=== PATIENT | female | born 1930 | race Caucasian/White ===

== ENCOUNTER 2018-10-17 20:25 | Inpatient (IN) | payer MEDICARE, OTHER ==
[~2018-10-17] VITALS: Ht 162.6 cm; Wt 113.4 kg
[~2018-10-17 20:25] MED LIST: AMIODARONE HCL200 MG PO; ATIVAN0.5 MG PO; LANTUS100 UNITS/ SC; LASIX40 MG PO; LEVOTHYROXINE75 MCG PO; MIRALAX17 GM PO; NOVOLOG MI100 UNITS/ SC; SPIRONOLACTONE25 MG PO
[2018-10-17] MEDS ORDERED: ACETAMINOPHEN 325 MG TAB PO ONE (20:45)
[2018-10-17] MEDS ORDERED: ACETAMINOPHEN 325 MG TAB ONE (20:55)
[2018-10-17] MEDS ORDERED: CEFTRIAXONE SOD 1 GM/NS 50 ML 50 ML IV ONE (21:00)
[2018-10-17 21:14] LABS: BASOPHILS # (AUTO) 0.1 (0.0-0.1); BASOPHILS % 0.2 % (0.0-1.0); EOSINOPHILS # (AUTO) 0.1 (0.0-0.4); EOSINOPHILS % 0.4 % (0.0-6.0); HEMATOCRIT 46.3 % (34.2-44.1); HEMOGLOBIN 15.3 g/dL (12.0-16.0); LYMPHOCYTES # (AUTO) 0.7 (1.0-3.2); LYMPHOCYTES % 3.2 % (18.0-39.1); MEAN CORPUSCULAR HEMOGLOBIN 32.2 pg (28-32); MEAN CORPUSCULAR VOLUME 97.5 fL (81-99); MONOCYTES # (AUTO) 0.7 (0.2-0.8); NEUTROPHILS # (AUTO) 20.9 (2.1-6.9); NEUTROPHILS % 92.5 % (38.7-80.0); PLATELET COUNT 144 x10e3/uL (140-360); RED BLOOD COUNT 4.75 x10e6/uL (3.6-5.1); RED CELL DISTRIBUTION WIDTH 14.3 % (11.7-14.4)
[2018-10-17 21:24] LABS: INR 2.21; PROTHROMBIN TIME 25.2 seconds (11.9-14.5)
[2018-10-17 21:25] LABS: PARTIAL THROMBOPLASTIN TIME 49.8 seconds (23.8-35.5)
--- NOTE | 2018-10-17 21:29 | NUR ---
JESICA LAYNE NOTIFIED OF CRITICAL LAB VALUE; LACTIC ACID 22.7.
[2018-10-17 21:31] LABS: ALBUMIN 3.5 g/dL (3.5-5.0); ALBUMIN/GLOBULIN RATIO 0.8 (0.8-2.0); ANION GAP 17.7 mmol/L (8-16); CALCIUM 10.5 mg/dL (8.4-10.2); CREATININE, SERUM 1.8 mg/dL (0.57-1.11); POTASSIUM 3.7 mmol/L (3.5-5.1)
[2018-10-17 21:38] LABS: CREATINE KINASE MB 1.7 ng/mL (0-5.0)
--- NOTE | 2018-10-17 21:38 | Diagnostic Imaging Report ---
EXAMINATION: CHEST SINGLE (PORTABLE) COMPARISON: None INDICATION: Fever ^fever ^[id number] ^2054 ^Y DISCUSSION: Frontal view of the chest obtained at 7 hours. HEART AND MEDIASTINUM: The cardiomediastinal silhouette is enlarged. There are calcifications in the aortic arch. LINES: None. LUNGS: Lung volumes are low. There is a patchy airspace opacity in the base of the right lung. Pulmonary vascular markings are prominent. PLEURA: No large effusions. No pneumothorax BONES AND SOFT TISSUES: Bilateral humeral prostheses are in anatomic alignment. No focal osseous lesions. The soft tissues are normal. IMPRESSION: Cardiomegaly and pulmonary vascular congestion. Right basilar airspace opacity may represent atelectasis or infiltrate. Recommend correlation with PA and lateral chest x-ray when clinically feasible. Signed by: Dr. Sterling Johnston MD on 10/17/2018 9:34 PM
[2018-10-17 21:52] LABS: B-TYPE NATRIURETIC PEPTIDE2 167.3 pg/mL (0-100)
[2018-10-17 21:55] LABS: BILIRUBIN,URINE NEGATIVE (NEGATIVE); CLARITY,URINE SL CLOUDY (CLEAR); COLOR,URINE YELLOW (YELLOW); KETONES,URINE NEGATIVE (NEGATIVE); LEUKOCYTE ESTERASE ,URINE NEGATIVE (NEGATIVE); NITRITE,URINE NEGATIVE (NEGATIVE); PROTEIN,URINE DIPSTICK NEGATIVE (NEGATIVE); URINE UROBILINOGEN 0.2 mg/dL (0.2 - 1)
[2018-10-17] MEDS ORDERED: AZITHROMYCIN 500MG/NS 250 ML 250 ML IV ONE (22:00)
[2018-10-17] MEDS ORDERED: SODIUM CHLORIDE 0.9% 250ML 250 ML IV ONE (22:15)
[2018-10-17 22:28] LABS: BACTERIA,URINE MANY /HPF; EPITHELIAL CELLS,URINE RARE /LPF; RBC,URINE 0-5 /HPF (0-5); WBC,URINE (MAN) 0-5 /HPF (0-5)
[2018-10-17] MEDS ORDERED: SODIUM CHLORIDE FLUSH 10 ML SYR INJ PRN (22:30)
[2018-10-17] MEDS ORDERED: AZITHROMYCIN 500MG/SOD CHL 0.9% 250ML BAG IV SCH (22:30)
[2018-10-17] MEDS ORDERED: CEFTRIAXONE SOD 1 GRAM/0.9% SOD CHL 50ML BAG IV SCH (22:30)
[2018-10-17] MEDS ORDERED: DEXTROSE 50% SYRINGE 50 ML IV PRN (22:30)
[2018-10-17] MEDS ORDERED: ONDANSETRON HCL INJ 2MG/ML 2ML 2 MG/ML VIAL IV PRN (22:30)
--- OUTSIDE RECORDS SUMMARY | 2018-10-17 22:32 | XMS REPORT ---
Author Author [facility] Address Unknown Phone Unavailable Care Team Providers Care Compliance Coordinator Name Role Phone Allison CRUZ Unavailable Unavailable Problems This patient has no known problems. Allergies, Adverse Reactions, Alerts This patient has no known allergies or adverse reactions. Medications This patient has no known medications. Results Test Description Test Time Test Comments Text Results Atomic Results Result Comments CHEST SINGLE (PORTABLE) 2018-10-17 21:33:00 [place] [address] Patient Name: SLICK HUGHES MR #: [id number] : 1930 Age/Sex: 87/F Req #: [id number] Adm Physician: Ordered by: SYLWIA CRUZ MD Report #: [id number] Location: ER Room/Bed: Procedure: [id number] DX/CHEST SINGLE (PORTABLE) Exam Date: 10/17/18 Exam Time: 2054 REPORT STATUS: Signed EXAMINATION: CHEST SINGLE (PORTABLE) C OMPARISON: None INDICATION: Fever fever [id number] Y DISCUSSION: Frontal view of the chest obtained at 2056 hours. HEART AND MEDIASTINUM: The cardiomediastinal silhouette is enlarged. There are calcifications in the aortic arch. LINES: None. LUNGS: Lung volumes are low. There is a patchy airspace opacity in the base of the right lung. Pulmonary vascular markings are prominent. PLEURA: No large effusions. No pneumothorax BONES AND SOFT TISSUES: Bilateral humeral prostheses are in anatomic alignment. No focal osseous lesions. The soft tissues are normal. IMPRESSION: Cardiomegaly and pulmonary vascular congestion. Right basilar airspace opacity may represent atelectasis or infiltrate. Recommend correlation with PA and lateral chest x- ray when clinically feasible. Signed by: Dr. Cecile Johnston MD on 10/17/2018 9:34 PM Dictated By: CECILE JOHNSTON MD 33 Transcribed By: SULEMAN on 10/17/182133 COPY TO: SYLWIA CRUZ MD
[2018-10-17] MEDS ORDERED: WARFARIN SODIUM2 MG PO (22:41)
[2018-10-17] MEDS ORDERED: PROLENSA OU (22:41)
[2018-10-17] MEDS ORDERED: TORSEMIDE10 MG PO ×2 (22:41)
[2018-10-17] MEDS ORDERED: LISINOPRIL10 MG PO (22:41)
[2018-10-17] MEDS ORDERED: METOPROLOL TART25 MG PO (22:41)
[2018-10-17] MEDS ORDERED: ATORVASTATIN CA20 MG PO (22:41)
[2018-10-17] MEDS ORDERED: LORAZEPAM 0.5 MG TAB PO PRN (22:45)
--- NOTE | 2018-10-17 23:30 | NUR ---
tele #7 with pt and pt running Afib
--- NOTE | 2018-10-17 23:30 | NUR ---
received pt from er to room 203, no resp distress, on o2 @2L, family at the bedside, no complaints of pain or discomfort, pt with generalized edema, chairfast, skin tear to right calf, blanchable redness to sacrum, 20G IV to left ac, bolus of 250 ml NS given, bed in lowest and locked position and call light in reach
[2018-10-17] MEDS ORDERED: SODIUM CHLORIDE 0.9% 250ML 250 ML ONE (23:54)
[2018-10-18] VITALS (10 sets, daily range): BP systolic 85–138; BP diastolic 48–65
[2018-10-18 05:21] LABS: BASOPHILS # (AUTO) 0.1 (0.0-0.1); BASOPHILS % 0.3 % (0.0-1.0); EOSINOPHILS % 0.1 % (0.0-6.0); HEMATOCRIT 41.1 % (34.2-44.1); HEMOGLOBIN 13.2 g/dL (12.0-16.0); LYMPHOCYTES % 3.7 % (18.0-39.1); MEAN CORPUSCULAR HEMOGLOBIN 31.9 pg (28-32); MEAN CORPUSCULAR HGB CONC 32.1 g/dL (31-35); MEAN CORPUSCULAR VOLUME 99.3 fL (81-99); MONOCYTES # (AUTO) 0.6 (0.2-0.8); MONOCYTES % 2.5 % (4.4-11.3); NEUTROPHILS # (AUTO) 23.7 (2.1-6.9); NEUTROPHILS % 91.7 % (38.7-80.0); PLATELET COUNT 123 x10e3/uL (140-360); RED BLOOD COUNT 4.14 x10e6/uL (3.6-5.1); RED CELL DISTRIBUTION WIDTH 14.5 % (11.7-14.4)
[2018-10-18 05:49] LABS: CREATINE KINASE MB 1.2 ng/mL (0-5.0)
[2018-10-18] MEDS: METOPROLOL TARTRATE 25 MG TAB PO SCH ×3 (06:00→21:55)
[2018-10-18] MEDS: TORSEMIDE 10 MG TAB PO SCH ×2 (06:00→12:30)
[2018-10-18 06:05] LABS: ALBUMIN 2.8 g/dL (3.5-5.0); ALBUMIN/GLOBULIN RATIO 0.8 (0.8-2.0); ANION GAP 13.3 mmol/L (8-16); CALCIUM 9.7 mg/dL (8.4-10.2); CREATININE, SERUM 1.86 mg/dL (0.57-1.11); POTASSIUM 3.3 mmol/L (3.5-5.1)
[2018-10-18] MEDS: LEVOTHYROXINE SODIUM 100 MCG TAB PO SCH (06:35)
[2018-10-18 06:36] LABS: BAND NEUTROPHILS % (MANUAL) 3 %; LYMPHOCYTES % (MANUAL) 3 % (19-48); MONOCYTES % (MANUAL) 2 % (3.4-9.0); NEUTROPHILS % (MANUAL) 92 % (40-74)
[2018-10-18 06:38] LABS: ANISOCYTOSIS SLIGHT; PLATELET ESTIMATE SLIGHTLY DECREASED; PLATELET MORPHOLOGY COMMENT NORMAL; RBC MORPHOLOGY COMMENT NORMAL
--- NOTE | 2018-10-18 07:30 | NUR ---
REC'D PT AAOX3, IV TO LEFT AC 20 GAUGE WITHOUT ANY COMPLICATIONS. PT ON O2 VIA NC RUNNING AT 2L/MIN. ON TELE #7 RUNNING ON A-FIB. ASSISTED PT TO SIT UP FOR BREAKFAST. NO S/S OF DISTRESS. SIDE RAILS UP X2, CALL ROGER WITHIN REACH, AND BED IN LOWEST POSITION.
[2018-10-18] MEDS: LISINOPRIL 10 MG TAB PO SCH (09:15)
--- NOTE | 2018-10-18 10:11 | NUR ---
EDUCATED ABOUT IMM, SIGNED, FILED IN CHART, WITH COPY LEFT WITH FAMILY AT BEDSIDE.
[2018-10-18] MEDS: INSULIN REGULAR, HUMAN 100 UNIT/1 ML 3ML VIAL SQ SCH ×4 (11:03→21:58)
[2018-10-18 13:40] LABS: CREATINE KINASE MB 1.5 ng/mL (0-5.0)
[2018-10-18] MEDS: WARFARIN SOD 2 MG TAB PO SCH (16:32)
[2018-10-18] MEDS ORDERED: POTASSIUM CHLORIDE 20 MEQ TAB CR PO ONE ×2 (17:07→22:00)
[2018-10-18] MEDS ORDERED: ONDANSETRON HCL INJ 2MG/ML 2ML 2 MG/ML VIAL IV PRN (17:15)
[2018-10-18] MEDS ORDERED: CLONIDINE HCL 0.1 MG TAB PO PRN (17:15)
--- NOTE | 2018-10-18 18:50 | NUR ---
PT IS SITTING IN [place] POSITION. O2 RUNNING AT 2L/MIN VIA NC. NO S/S OF DISTRESS. SIDE RAILS UP X2, CALL ROGER WITHIN REACH, AND BED IN LOWEST POSITION.
[2018-10-18] MEDS: ATORVASTATIN 20 MG TAB PO SCH (20:29)
[2018-10-18] MEDS: ACETAMINOPHEN 325 MG TAB PO PRN (20:29)
[2018-10-18] MEDS ORDERED: CEFTRIAXONE SOD 1 GRAM/0.9% SOD CHL 50ML BAG IV SCH (21:00)
[2018-10-18] MEDS: AZITHROMYCIN 500MG/SOD CHL 0.9% 250ML BAG IV SCH (21:11)
[2018-10-19] VITALS (9 sets, daily range): BP systolic 113–184; BP diastolic 55–76
[2018-10-19 05:12] LABS: BASOPHILS % 0.2 % (0.0-1.0); EOSINOPHILS # (AUTO) 0.2 (0.0-0.4); HEMOGLOBIN 14.7 g/dL (12.0-16.0); LYMPHOCYTES # (AUTO) 2.6 (1.0-3.2); LYMPHOCYTES % 16.1 % (18.0-39.1); MEAN CORPUSCULAR HEMOGLOBIN 32.3 pg (28-32); MEAN CORPUSCULAR HGB CONC 33.4 g/dL (31-35); MEAN CORPUSCULAR VOLUME 96.7 fL (81-99); MONOCYTES # (AUTO) 0.5 (0.2-0.8); MONOCYTES % 3.3 % (4.4-11.3); NEUTROPHILS # (AUTO) 12.8 (2.1-6.9); NEUTROPHILS % 78.9 % (38.7-80.0); PLATELET COUNT 122 x10e3/uL (140-360); RED BLOOD COUNT 4.55 x10e6/uL (3.6-5.1); RED CELL DISTRIBUTION WIDTH 14.6 % (11.7-14.4)
[2018-10-19] MEDS: TORSEMIDE 10 MG TAB PO SCH ×2 (05:54→13:14)
[2018-10-19 05:55] LABS: ANION GAP 15.4 mmol/L (8-16); CALCIUM 9.8 mg/dL (8.4-10.2); CHOL/HDL RATIO 3.3 (3.0-3.6); CREATININE, SERUM 1.86 mg/dL (0.57-1.11); MAGNESIUM 1.4 MG/DL (1.3-2.1); PHOSPHORUS 2.6 MG/DL (2.3-4.7); POTASSIUM 3.4 mmol/L (3.5-5.1)
[2018-10-19] MEDS: METOPROLOL TARTRATE 25 MG TAB PO SCH ×3 (05:55→21:42)
[2018-10-19] MEDS: LEVOTHYROXINE SODIUM 100 MCG TAB PO SCH (05:55)
[2018-10-19] MEDS ORDERED: SODIUM CHLORIDE 0.9% 1000ML 1,000 ML IV ONE (06:15)
[2018-10-19] MEDS ORDERED: MAGNESIUM SULF 1GRAM/DEXTROSE 100 ML IV ONE (06:15)
[2018-10-19 06:17] LABS: THYROID STIMULATING HORMONE 1.339 uIU/mL (0.350-4.940)
--- NOTE | 2018-10-19 06:19 | Diagnostic Imaging Report ---
Abdomen/KUB INDICATION: ^high pitched tinkling bowel sounds ^Y COMPARISON: None. FINDINGS: Portable, supine image obtained at 0542 hours. Medical Devices: None Bowel: Unremarkable bowel gas pattern. No dilated bowel loops or pneumatosis. Prominent stool ball in the rectum and moderate burden of stool in the right colon. Free air: Normal. Calcifications: Diffuse vascular calcifications. Organomegaly: None Lung bases: Left basilar atelectasis. Bones: Mild levoscoliosis the lumbar spine with superimposed degenerative change. Soft tissues: Unremarkable. IMPRESSION: Unremarkable bowel gas pattern. Moderate burden of stool in the right colon. Possible fecal impaction in the rectum. Signed by: Dr. Sterling Johnston MD on 10/19/2018 6:16 AM
--- NOTE | 2018-10-19 06:20 | NUR ---
lactic acid of 27.3, called LUCAS Sabillon to inform of results, orders received
--- NOTE | 2018-10-19 07:15 | NUR ---
REC'D PT AAOX1, PT IS CONFUSED AND AGITATED. O2 RUNNING AT 2L/MIN VIA NC. NO S/S OF DISTRESS. IV TO LEFT AC IS DRY AND INTACT. FLUIDS ARE RUNNING. BED IN LOWEST POSITION, SIDE RAILS UP X2, AND CALL ROGER WITHIN REACH.
[2018-10-19] MEDS: INSULIN REGULAR, HUMAN 100 UNIT/1 ML 3ML VIAL SQ SCH ×4 (08:00→21:45)
[2018-10-19] MEDS: FAMOTIDINE 20 MG TAB PO SCH ×2 (08:28→17:44)
[2018-10-19] MEDS: LISINOPRIL 10 MG TAB PO SCH (08:28)
[2018-10-19] MEDS: DOCUSATE SODIUM 100 MG CAP PO SCH ×2 (08:28→17:44)
--- NOTE | 2018-10-19 10:51 | NUR ---
SPOKE WITH PT SHE HAS [facility] AND WANTS TO RETURN TO THEIR SERVICES UPON DISCHARGE.
[2018-10-19] MEDS ORDERED: LACTULOSE SYRUP 20 GM/30 ML UDC PO PRN ×2 (13:45→14:30)
[2018-10-19] MEDS: CEFEPIME 1GM/NS 0.9% 50 ML 50 ML IV SCH (14:00)
[2018-10-19] MEDS: GLIPIZIDE 5 MG TAB PO SCH (14:30)
[2018-10-19] MEDS ORDERED: BISACODYL 10 MG SUPP PR NR (14:30)
[2018-10-19] MEDS ORDERED: POTASSIUM CHLORIDE 20 MEQ TAB CR PO NR (14:30)
[2018-10-19] MEDS ORDERED: ONDANSETRON HCL 4 MG ORAL DISINTEGRATING TAB PO PRN (15:00)
--- NOTE | 2018-10-19 15:00 | NUR ---
PT HAD A BOWEL MOVEMENT AND URINATED IN THE BED HERNANDEZ.
--- NOTE | 2018-10-19 15:21 | NUR ---
WOUND CARE CONSULTATION - INITIAL EVALUATION Patient admitted from home to ER for Chronic A-Fib, Fever Chills, and PNA. HX: HTN, DM, CHF, AFIB, Gallstones, Kidney Failure, Umbilical Hernia. LABS: WBC16.18 HGB14.7 HCT44 NEUT%78.9 IWA255 HBA1c%7.6 Urine CX- E-Coli No wound Cultures noted. - wound culture performed of Right Lateral Lower Leg ulcer and sent to lab during this visit. WC Consulted for Ulcer to right outer calf area. PATIENT VISIT: Patient calm and cooperative. 2 person assist to turn. Generalized weakness. - Walter Score 13 - Visco Mattress in place. - Patient Supine position, Staff at bedside assisting with bowel movement at time of visit. - Linear non-blanchable purpled area at mid gluteal fold. No drainage, Distal aspect macerated but no open skin noted. - Right Lower Leg- Edema+1. Leg warmer to touch than the left leg. Left Leg cool to touch. Redness streaking from Right Lateral Calf area toward area below the knee and proximal to ankle. Annular wound,states she got it when getting in and out of son's truck. Unable to say how long she has had ulcer. Unknown accuracy of history of events. Ulcer ins oval shaped, partial thickness extended past dermis. Area was covered with opsite and was fluid filled with dark brown content. No odor noted. Area cultured and sent to lab for C&S and gram stain. - No other wounds identified during visit. Additional description documented on Wound Assessment portion and is linked to this note. IMPRESSION: 1. Right Calf - Lateral - Abrasion with Possible Cellulitis. 2. Mid Gluteal Fold - Deep tissue Injury- Present on Admission. RECOMMENDATION: 1. Right Calf - Lateral - Abrasion with Possible Cellulitis. - Cleanse wound with NS and 4x4 gauze - Apply Silver Alginate and Cover with Allevyn Foam Dressing Daily 2. Mid Gluteal Fold - Deep tissue Injury- Present on Admission. - Cleanse area with mild soap and water then pat dry thoroughly. - Apply Rick cream q12h and PRN Soiling then cover with Allevyn Foam Dressing. 3. Turn and Reposition patient q2h using turning clock schedule 4. Alternating Pressure Air Mattress and set to patient current weight 5. Bilateral Heel Protectors/ Offload Heels with Pillows while in bed. 6. Head of bed no greater than 30 degrees as tolerated. Thank you for consulting with Wound Care. Addendum: 10/19/18 at 1538 by George Ferrera RN Amended: Links added.
[2018-10-19] MEDS ORDERED: SODIUM CHLORIDE 0.9% 250ML 250 ML ONE (17:34)
[2018-10-19] MEDS: ZINC OXIDE / BALSAM PERU 30 GM TUBE TOP SCH (17:44)
[2018-10-19] MEDS: WARFARIN SOD 2 MG TAB PO SCH (17:44)
--- NOTE | 2018-10-19 18:43 | NUR ---
PT IS LAYING IN BED WITH O2 RUNNING AT 2L/MIN. NO S/S OF DISTRESS. PATIENT REPOSITIONED IN BED. 1 L OF IV FLUID FINISHED. SIDE RAILS UPX3, BED IN LOWEST POSITION, AND CALL ROGER WITHIN REACH.
[2018-10-19] MEDS: AZITHROMYCIN 500MG/SOD CHL 0.9% 250ML BAG IV SCH (21:42)
[2018-10-19] MEDS: ATORVASTATIN 20 MG TAB PO SCH (21:42)
[2018-10-20] VITALS (8 sets, daily range): BP systolic 106–148; BP diastolic 56–80
[2018-10-20] MEDS: ZINC OXIDE / BALSAM PERU 30 GM TUBE TOP SCH ×2 (05:20→16:44)
[2018-10-20] MEDS: METOPROLOL TARTRATE 25 MG TAB PO SCH ×3 (05:20→20:50)
[2018-10-20] MEDS: LEVOTHYROXINE SODIUM 100 MCG TAB PO SCH (05:20)
[2018-10-20] MEDS: TORSEMIDE 10 MG TAB PO SCH ×2 (05:20→12:39)
--- NOTE | 2018-10-20 06:32 | Diagnostic Imaging Report ---
EXAMINATION: CHEST 2 VIEWS INDICATION: ^PMH CHF COPD; eval for pulmonary edema s/p IVF ^Y COMPARISON: Chest x-ray 10/17/2018 FINDINGS: PA and lateral views TUBES and LINES: None. LUNGS: Stable pulmonary hyperinflation. The pulmonary vascular markings are prominent and stable. There is minimal bibasilar atelectasis. No infiltrates on lateral image. PLEURA: No large effusions. No pneumothorax. HEART AND MEDIASTINUM: Stable cardiomegaly. BONES AND SOFT TISSUES: Stable bilateral humeral prostheses. Soft tissues are unremarkable. UPPER ABDOMEN: No free air under the diaphragm. IMPRESSION: Stable cardiomegaly and vascular congestion. Bibasilar atelectasis. No infiltrates. Signed by: Dr. Sterling Johnston MD on 10/20/2018 6:29 AM
[2018-10-20] MEDS: FAMOTIDINE 20 MG TAB PO SCH ×2 (09:29→16:43)
[2018-10-20] MEDS: DOCUSATE SODIUM 100 MG CAP PO SCH ×3 (09:29→16:43)
[2018-10-20] MEDS: GLIPIZIDE 5 MG TAB PO SCH (09:29)
[2018-10-20] MEDS: ACETAMINOPHEN 325 MG TAB PO PRN (09:30)
[2018-10-20] MEDS: LISINOPRIL 10 MG TAB PO SCH (09:30)
[2018-10-20] MEDS: GUAIFENESIN 600 MG TAB PO SCH ×3 (11:00→16:45)
--- NOTE | 2018-10-20 11:01 | NUR ---
UA, sputum and WC need to be collected, patient off floor for MBS
[2018-10-20] MEDS: INSULIN LISPRO 100 UNIT/1 ML 3ML VIAL SQ SCH ×3 (12:39→21:15)
[2018-10-20] MEDS: CEFEPIME 1GM/NS 0.9% 50 ML 50 ML IV SCH (12:39)
--- NOTE | 2018-10-20 13:49 | Diagnostic Imaging Report ---
EXAM: Modified barium swallow with Speech Pathologist INDICATION: ^POSSIBILITY OF ASPIRATION ^[id number] ^1010 COMPARISON: None available. RADIATION DOSE: Fluoroscopy Time: 2.1 min Dose (Kerma) Area Product: 4.28 Gycm2 Air Kerma (AK) value has been reviewed. It is below the limits set by the Radiation Protocol Committee (RPC) committee. FINDINGS: See impression IMPRESSION: Laryngeal penetration with thin, nectar, and juice portion of mixed texture. Silent aspiration with thin and nectar thick liquids as well as juice portion of mixed texture. Refer to speech pathology report for details and recommendations. Signed by: Dr. Demario Howard M.D. on 10/20/2018 1:45 PM
[2018-10-20] MEDS: VANCOMYCIN 1GM/NS 250 ML 250 ML IV SCH (14:00)
--- NOTE | 2018-10-20 14:30 | NUR ---
UA and WC collected and taken to lab
[2018-10-20 14:52] LABS: BILIRUBIN,URINE NEGATIVE (NEGATIVE); CLARITY,URINE CLEAR (CLEAR); COLOR,URINE YELLOW (YELLOW); KETONES,URINE NEGATIVE (NEGATIVE); LEUKOCYTE ESTERASE ,URINE NEGATIVE (NEGATIVE); NITRITE,URINE NEGATIVE (NEGATIVE); PROTEIN,URINE DIPSTICK TRACE (NEGATIVE); URINE UROBILINOGEN 0.2 mg/dL (0.2 - 1)
[2018-10-20 15:07] LABS: AMORPHOUS SEDIMENT,URINE MODERATE (FEW); EPITHELIAL CELLS,URINE MODERATE /LPF; RBC,URINE 0-5 /HPF (0-5); TRANSITIONAL EPI CELLS,URINE MODERATE
[2018-10-20] MEDS: POLYETHYLENE GLYCOL 3350 17 GM PACK PO SCH (16:43)
[2018-10-20 17:25] LABS: INR 2.29; PROTHROMBIN TIME 25.9 seconds (11.9-14.5)
[2018-10-20] MEDS: WARFARIN SOD 2 MG TAB PO SCH (17:41)
[2018-10-20] MEDS ORDERED: DIATRIZOATE MEGL/DIATRIZOA SOD 30 ML BTL PO ONE (17:55)
[2018-10-20] MEDS ORDERED: MEROPENEM 1GM 100 ML IV SCH (18:00)
--- NOTE | 2018-10-20 19:29 | NUR ---
patient is off unit for Ab CT
--- NOTE | 2018-10-20 20:26 | Diagnostic Imaging Report ---
EXAM: CT Abdomen and Pelvis WITHOUT contrast INDICATION: ^r/o infection ^[id number] ^1934 COMPARISON: KUB 10/19/2018 and chest radiograph 10/20/2018 TECHNIQUE: Abdomen and pelvis were scanned utilizing a multidetector helical scanner from the lung base to the pubic symphysis without administration of IV contrast. Absence of intravenous contrast decreases sensitivity for detection of focal lesions and vascular pathology. Coronal and sagittal reformations were obtained. Routine protocol was performed. IV CONTRAST: None. ORAL CONTRAST: Water RADIATION DOSE: Total DLP: 715.9 mGy*cm Estimated effective dose: (DLP x 0.015 x size factor) mSv COMPLICATIONS: None FINDINGS: LINES and TUBES: None. LOWER THORAX: Subsegmental atelectasis in both lung bases. Coronary artery calcifications. Lipomatous hypertrophy of the interatrial septum. HEPATOBILIARY: No focal hepatic lesions. No biliary ductal dilation. GALLBLADDER: 1.2 cm calcified gallstone. No wall thickening. SPLEEN: No splenomegaly. PANCREAS: No focal masses or ductal dilatation. ADRENALS: No adrenal nodules KIDNEYS/URETERS: No hydronephrosis. Few bilateral renal cysts with the largest on the left measuring 2.4 cm. Some of the cysts are hyperdense and may be hemorrhagic. Mild bilateral cortical renal atrophy. No stones. GI TRACT: Retained contrast in the stomach from recent barium swallow limits evaluation of the upper abdomen. Mild diffuse wall thickening of multiple loops of the small bowel suggestive of enteritis. No bowel dilatation or obstruction. Retained oral contrast in the colon without wall thickening. Large amount of retained stool throughout the colon. The appendix is not visualized. PELVIC ORGANS/BLADDER: The urinary bladder appears unremarkable. The uterus is mildly prominent and may contain a few fibroids. LYMPH NODES: No lymphadenopathy. VESSELS: Moderate calcifications of the abdominal aorta and pelvic arteries without aneurysm. PERITONEUM / RETROPERITONEUM: No free air or fluid. BONES: Remote posttraumatic deformity of the left lateral 8th to 10th ribs. Moderate multilevel degenerative changes of the lumbar spine. Minimal anterolisthesis of L4 over L5. SOFT TISSUES: Small fat-containing anterior ventral hernia. IMPRESSION: 1. CT findings suggestive of enteritis which can be inflammatory or infectious. 2. Cholelithiasis without cholecystitis. Signed by: Dr. Kelly Stewart M.D. on 10/20/2018 8:23 PM
[2018-10-20] MEDS: AZITHROMYCIN 500MG/SOD CHL 0.9% 250ML BAG IV SCH (20:49)
[2018-10-20] MEDS: ATORVASTATIN 20 MG TAB PO SCH (20:50)
--- NOTE | 2018-10-20 21:25 | NUR ---
SPOKE TO LUCAS CARRILLO THAT FAMILY REQUESTED FOR PT TO HAVE [facility]. NEW ORDER RECEIVED [facility].
[2018-10-20] MEDS: INSULIN GLARGINE 100 UNITS/ML VIAL SQ SCH (21:40)
[2018-10-21] VITALS (8 sets, daily range): BP systolic 113–149; BP diastolic 58–65
--- NOTE | 2018-10-21 00:11 | Consultation ---
DATE OF CONSULTATION: HISTORY OF PRESENT ILLNESS: This is an 87-year-old white female, who comes in with fever and chills, not feeling well. The patient was brought to the emergency room. In the [facility], she was admitted with fever and chills. In the emergency room, she was evaluated. Apparently, her urine smells really bad. She is also having right shoulder pain. The patient had blood cultures and urine cultures, started on IV antibiotic. I was asked to see her. PAST MEDICAL HISTORY: Diabetes mellitus, congestive heart failure, atrial fibrillation, cholecystectomy, umbilical hernia, kidney failure, hypertension. PAST SURGICAL HISTORY: Cholecystectomy. SOCIAL HISTORY: There is no smoking, drug abuse, or alcohol abuse. FAMILY HISTORY: Hypertension and diabetes. REVIEW OF SYSTEMS: The patient is not a good source of information. HEENT: There is no headache, visual changes, or hearing changes. GI: There is no nausea, no vomiting, no diarrhea. CARDIAC: There is no arrhythmia. NEURO: No seizure activity. SKIN: There are no other rashes. LABORATORY DATA: Reviewed. Her urine cultures on admission showed E. coli. Her blood culture shows Pseudomonas aeruginosa as well as Gram-positive cocci. The repeat blood culture is negative. Her sensitivity was reviewed. The Pseudomonas was sensitive to ceftazidime and cefepime, resistant to Invanz, sensitive to imipenem and levofloxacin. Her white count on admission was 22.6, today 16.18, hemoglobin 14.7. Her sodium 137, potassium 3.4, creatinine 1.86. BNP 202. The patient was currently on zinc oxide. She is on insulin, Colace, Lopressor. She received a dose of vancomycin, received Rocephin and glipizide. She is also on azithromycin and clonidine. Her chest x-ray shows stable cardiomegaly, no infiltrate. PHYSICAL EXAMINATION: GENERAL: She is currently alert, does not seem to be in acute distress. VITAL SIGNS: Temperature 101.2, heart rate of 98, respirations 18. HEENT: Normocephalic, not icteric. NECK: Supple. CHEST: A few crackles. COR: S1, S2. No S3, S4, or murmur. ABDOMEN: Soft. Bowel sounds present, no tenderness. EXTREMITIES: No edema, obese. SKIN: No rash. IMPRESSION: 1. Sepsis with Pseudomonas. Source is unclear concerned about an abdominal process. Obtain a CT of abdomen and pelvis, no contrast. 2. Chronic kidney disease. Creatinine 1.86. Recheck CBC. Recheck Chem panel. 3. Diabetes mellitus. 4. Obesity from a component of congestive heart failure. 5. UTI, bacteremia, Gram-positive cocci, it could be a contamination before number we will follow with you. Further recommendations to follow. MD RONALDO Gómez/RAS /[id number]
[2018-10-21] MEDS: ZINC OXIDE / BALSAM PERU 30 GM TUBE TOP SCH ×2 (04:55→14:40)
[2018-10-21 05:20] LABS: BASOPHILS % 0.2 % (0.0-1.0); EOSINOPHILS # (AUTO) 0.3 (0.0-0.4); EOSINOPHILS % 2.8 % (0.0-6.0); HEMATOCRIT 38.9 % (34.2-44.1); HEMOGLOBIN 12.5 g/dL (12.0-16.0); LYMPHOCYTES # (AUTO) 1.6 (1.0-3.2); LYMPHOCYTES % 17.5 % (18.0-39.1); MEAN CORPUSCULAR HEMOGLOBIN 31.5 pg (28-32); MEAN CORPUSCULAR HGB CONC 32.1 g/dL (31-35); MONOCYTES # (AUTO) 0.8 (0.2-0.8); MONOCYTES % 8.4 % (4.4-11.3); NEUTROPHILS # (AUTO) 6.4 (2.1-6.9); NEUTROPHILS % 70.5 % (38.7-80.0); PLATELET COUNT 111 x10e3/uL (140-360); RED BLOOD COUNT 3.97 x10e6/uL (3.6-5.1); RED CELL DISTRIBUTION WIDTH 14.6 % (11.7-14.4)
[2018-10-21 05:39] LABS: ANION GAP 9.2 mmol/L (8-16); CALCIUM 8.6 mg/dL (8.4-10.2); CREATININE, SERUM 1.45 mg/dL (0.57-1.11); MAGNESIUM 1.5 MG/DL (1.3-2.1); POTASSIUM 3.2 mmol/L (3.5-5.1)
[2018-10-21] MEDS: TORSEMIDE 10 MG TAB PO SCH ×2 (05:43→12:00)
[2018-10-21] MEDS: LEVOTHYROXINE SODIUM 100 MCG TAB PO SCH (05:45)
[2018-10-21] MEDS: METOPROLOL TARTRATE 25 MG TAB PO SCH ×3 (05:45→19:47)
[2018-10-21] MEDS: FAMOTIDINE 20 MG TAB PO SCH ×2 (08:53→16:26)
[2018-10-21] MEDS: DOCUSATE SODIUM 100 MG CAP PO SCH ×2 (08:53→16:26)
[2018-10-21] MEDS: GUAIFENESIN 600 MG TAB PO SCH ×2 (08:53→16:27)
[2018-10-21] MEDS: GLIPIZIDE 5 MG TAB PO SCH (08:53)
[2018-10-21] MEDS: VANCOMYCIN 1GM/NS 250 ML 250 ML IV SCH (08:53)
[2018-10-21] MEDS: POLYETHYLENE GLYCOL 3350 17 GM PACK PO SCH ×2 (08:53→16:27)
[2018-10-21] MEDS: LISINOPRIL 10 MG TAB PO SCH (08:53)
[2018-10-21] MEDS: INSULIN LISPRO 100 UNIT/1 ML 3ML VIAL SQ SCH ×4 (08:54→20:45)
[2018-10-21] MEDS ORDERED: POTASSIUM CHLORIDE 20 MEQ TAB CR PO STA (09:11)
--- NOTE | 2018-10-21 12:19 | NUR ---
ELENI SPOKE TO PATIENT AT BEDSIDE. PATIENT DAUGHTER ON SPEAKER PHONE. PATIENT INFORMED OF RESUMPTION OF HOME HEALTH ORDER. PATIENT AND PATIENT DAUGHTER AGREED TO RESUMPTION OF HOME HEALTH WITH [facility]. CHOICE LETTER SIGNED WITH TWO PERSON CONSENT BY ELENI AND NURSE NEWMAN. CLINICAL SENT TO [facility]. [facility] Address: [facility] [place] [address] [address] FAX: [phone] JINA FROM [facility] CONFIRMED SHE RECEIVED CLINICAL AND SERVICES WILL RETURN ONCE PATIENT IS DISCHARGED.
[2018-10-21] MEDS ORDERED: CEFEPIME HCL 1 GM VIAL IV SCH (12:30)
[2018-10-21] MEDS: CEFEPIME 1GM/NS 0.9% 50 ML 50 ML IV SCH ×2 (14:05→19:46)
[2018-10-21] MEDS: METRONIDAZOLE 500MG/NS 100ML 100 ML IV SCH ×2 (14:40→21:19)
[2018-10-21] MEDS: WARFARIN SOD 2 MG TAB PO SCH (16:27)
[2018-10-21] MEDS: IPRATROPIUM BROMIDE 0.02% 2.5 ML NEB NEB SCH ×2 (17:17→20:29)
[2018-10-21] MEDS: ALBUTEROL SULF 0.083% NEB SOLN 3 ML NEB NEB SCH ×3 (17:17→23:06)
--- NOTE | 2018-10-21 19:35 | NUR ---
PATIENT RESTING IN BED. RESP EVEN AND UNLABORED. NO ACUTE DISTRESS NOTED. PATIENT C/O PAIN TO RIGHT LEG, WILL MEDICATE PER MAR. TELE IN PLACE. FAMILY AT BED SIDE. BED LOW/LOCKED. CONTINUE TO MONITOR CLOSELY
[2018-10-21] MEDS: ATORVASTATIN 20 MG TAB PO SCH (19:46)
[2018-10-21] MEDS: ACETAMINOPHEN 325 MG TAB PO PRN (19:47)
[2018-10-21] MEDS ORDERED: SODIUM CHLORIDE 0.9% 250ML 250 ML ONE (19:49)
[2018-10-21] MEDS ORDERED: CEFEPIME 1GM/NS 0.9% 50 ML 50 ML IV SCH (21:00)
[2018-10-21] MEDS: INSULIN GLARGINE 100 UNITS/ML VIAL SQ SCH (21:30)
[2018-10-22] VITALS (7 sets, daily range): BP systolic 109–151; BP diastolic 47–68
[2018-10-22] MEDS: ACETAMINOPHEN 325 MG TAB PO PRN (02:35)
[2018-10-22] MEDS: ALBUTEROL SULF 0.083% NEB SOLN 3 ML NEB NEB SCH ×5 (03:37→23:20)
[2018-10-22] MEDS: IPRATROPIUM BROMIDE 0.02% 2.5 ML NEB NEB SCH ×5 (03:37→19:25)
[2018-10-22] MEDS: ZINC OXIDE / BALSAM PERU 30 GM TUBE TOP SCH ×2 (04:30→16:06)
[2018-10-22 05:05] LABS: BASOPHILS % 0.3 % (0.0-1.0); EOSINOPHILS # (AUTO) 0.3 (0.0-0.4); EOSINOPHILS % 2.8 % (0.0-6.0); HEMATOCRIT 40.2 % (34.2-44.1); HEMOGLOBIN 12.5 g/dL (12.0-16.0); LYMPHOCYTES # (AUTO) 2.2 (1.0-3.2); LYMPHOCYTES % 24.6 % (18.0-39.1); MEAN CORPUSCULAR HEMOGLOBIN 30.9 pg (28-32); MEAN CORPUSCULAR HGB CONC 31.1 g/dL (31-35); MEAN CORPUSCULAR VOLUME 99.5 fL (81-99); MONOCYTES # (AUTO) 0.8 (0.2-0.8); MONOCYTES % 9.4 % (4.4-11.3); NEUTROPHILS # (AUTO) 5.6 (2.1-6.9); NEUTROPHILS % 62.6 % (38.7-80.0); PLATELET COUNT 112 x10e3/uL (140-360); RED BLOOD COUNT 4.04 x10e6/uL (3.6-5.1); RED CELL DISTRIBUTION WIDTH 14.6 % (11.7-14.4)
[2018-10-22 05:27] LABS: ANION GAP 10.9 mmol/L (8-16); CALCIUM 8.6 mg/dL (8.4-10.2); CREATININE, SERUM 1.54 mg/dL (0.57-1.11); POTASSIUM 3.9 mmol/L (3.5-5.1)
[2018-10-22] MEDS: LEVOTHYROXINE SODIUM 100 MCG TAB PO SCH (05:56)
[2018-10-22] MEDS: METOPROLOL TARTRATE 25 MG TAB PO SCH ×3 (05:56→21:43)
[2018-10-22] MEDS: TORSEMIDE 10 MG TAB PO SCH ×2 (05:56→13:03)
[2018-10-22] MEDS: METRONIDAZOLE 500MG/NS 100ML 100 ML IV SCH ×3 (05:56→22:34)
--- NOTE | 2018-10-22 07:00 | NUR ---
BEDSIDE SHIFT REPORT RECEIVED FROM SLATE SPLITTING SUPERVISOR RN. PT DENIES NEEDS AT THIS TIME.
[2018-10-22] MEDS: LISINOPRIL 10 MG TAB PO SCH (08:37)
[2018-10-22] MEDS: FAMOTIDINE 20 MG TAB PO SCH ×2 (08:37→16:51)
[2018-10-22] MEDS: GUAIFENESIN 600 MG TAB PO SCH ×2 (08:37→16:52)
[2018-10-22] MEDS: GLIPIZIDE 5 MG TAB PO SCH (08:37)
[2018-10-22] MEDS: CEFEPIME 1GM/NS 0.9% 50 ML 50 ML IV SCH ×2 (08:37→21:25)
[2018-10-22] MEDS: DOCUSATE SODIUM 100 MG CAP PO SCH ×2 (08:37→16:52)
[2018-10-22] MEDS: POLYETHYLENE GLYCOL 3350 17 GM PACK PO SCH ×2 (08:37→16:52)
[2018-10-22] MEDS: INSULIN LISPRO 100 UNIT/1 ML 3ML VIAL SQ SCH ×4 (08:55→21:32)
[2018-10-22] MEDS ORDERED: ACETAMINOPHEN/CODEINE 300MG - 30MG TAB PO PRN (09:45)
[2018-10-22] MEDS ORDERED: COLACE100 MG PO (09:47)
[2018-10-22] MEDS ORDERED: SYNTHROID100 MCG PO (09:47)
[2018-10-22] MEDS ORDERED: MUCINEX600 MG PO (09:47)
[2018-10-22] MEDS ORDERED: TYLENOL # 31 EA PO (09:47)
--- NOTE | 2018-10-22 10:00 | NUR ---
IMM letter delivered and explained to pt and her caregiver at bedside. Pt verbalized understanding and stated that she was ready to go home. Signed copy placed in chart. Copy given to pt's caregiver.
--- NOTE | 2018-10-22 12:25 | Diagnostic Imaging Report ---
Examination: Single AP view of the chest. COMPARISON: 10/20/2018 INDICATION: Pneumonia DISCUSSION: Lungs remain well-inflated. Stable enlargement of the cardiac silhouette and prominence of the central pulmonary vasculature. Trace bilateral pleural effusions are suspected. No new consolidation. Bilateral proximal humeral surgical hardware partially visualized. No acute osseous abnormality. IMPRESSION: Stable enlargement of the cardiac silhouette and pulmonary venous congestion relative to 10/20/2018. No new consolidations. Signed by: Dr. Demario Howard M.D. on 10/22/2018 12:21 PM
--- NOTE | 2018-10-22 12:32 | NUR ---
CM SPOKE TO PATIENT AT BEDSIDE REGARDING HOME O2 NEED. PATIENT STATES SHE IS AWARE AND WANTS TO HAVE HOME O2. PATIENT GIVEN CHOICES AND SIGNED CHOICE FOR [facility]. CLINICAL PICKED UP BY [facility] TESTING ANALYST. PATIENT APPROVED. PENDING DELIVERY TO BEDSIDE FOR DISCHARGE. [address] [address] TEL: [phone] FAX: [phone]
--- NOTE | 2018-10-22 13:31 | NUR ---
DISCHARGE DISPOSITION: PATIENT DISCHARGING HOME WITH THE FOLLOWING HOME HEALTH SERVICES: [facility] Address: [facility] [place] [address] FAX: [phone] HOME OXYGEN PROVIDER: SAULO RODRIGUEZ [address] [place] [address] DRIVE TEL: [phone] FAX: [phone]
[2018-10-22 17:31] LABS: INR 2.87; PROTHROMBIN TIME 30.8 seconds (11.9-14.5)
--- NOTE | 2018-10-22 17:49 | NUR ---
Nutrition Screen Note RD Recommendation for Physician: -Continue current diet as ordered; texture per COIL MACHINE OPERATOR Plan of Care: RD following, monitoring for tolerance and adequacy Nutrition reason for involvement: LOS Primary Diagnose(s): sepsis with pseudomonas PMH: Diabetes mellitus, congestive heart failure, atrial fibrillation, cholecystectomy, umbilical hernia, kidney failure, hypertension. Ht: 64in Wt: 250lb BMI: 42.9kg/m2 IBW: 120lb RD Assessment: (10/22) Chart reviewed. Labs and meds reviewed. 87yo F, who was admitted for fever and chills. COIL MACHINE OPERATOR was following for dysphagia and NMES therapy. Visited pt in the room. Pt reported good tolerance to current diet texture. Appetite has been great with 100% reported meal intake. No complains of nausea or vomiting. Pt denied any weight loss DOOR TO DOOR SELLING AGENT. Will continue to monitor and follow. Current Diet: ADA diet (mechanical soft, honey thickened, no mixed texture) Malnutrition Evaluation (10/22/2018) The patient does not meet criteria for a specified degree of malnutrition at this time. Will re-evaluate at follow-up as appropriate. Diet Education Needs Assessment: Diet education not indicated. Nutrition Care Level: low Signed: Nguyen Watson, MS, RD, LD
[2018-10-22] MEDS: WARFARIN SOD 2 MG TAB PO SCH (18:08)
--- NOTE | 2018-10-22 19:15 | NUR ---
Rounding done & report received. Patient is resting in bed comfortably talking w/ her caregiver, respirations even & unlabored, no distress noted. NC @ 2L. Tele in place. IV to L AC 20g SL, patent & no infiltration noted. Patient has R FA & R lower leg dressings, C/D/I. Heel protectors in place. Patient denies any issues or needs at this time. Call light within reach, bed alarm in place, side rails x2 raised & bed set to lowest position.
[2018-10-22] MEDS ORDERED: INSULIN GLARGINE 100 UNITS/ML VIAL SQ SCH (21:00)
[2018-10-22] MEDS: ATORVASTATIN 20 MG TAB PO SCH (21:25)
[2018-10-23] VITALS (7 sets, daily range): BP systolic 120–154; BP diastolic 54–101
[2018-10-23] MEDS: ZINC OXIDE / BALSAM PERU 30 GM TUBE TOP SCH ×2 (00:31→15:45)
[2018-10-23] MEDS: IPRATROPIUM BROMIDE 0.02% 2.5 ML NEB NEB SCH ×3 (02:30→15:29)
[2018-10-23] MEDS: ALBUTEROL SULF 0.083% NEB SOLN 3 ML NEB NEB SCH ×4 (02:30→15:26)
[2018-10-23 04:21] LABS: BASOPHILS % 0.2 % (0.0-1.0); EOSINOPHILS # (AUTO) 0.4 (0.0-0.4); EOSINOPHILS % 4.9 % (0.0-6.0); HEMATOCRIT 39.1 % (34.2-44.1); HEMOGLOBIN 12.7 g/dL (12.0-16.0); LYMPHOCYTES # (AUTO) 2.5 (1.0-3.2); LYMPHOCYTES % 30.1 % (18.0-39.1); MEAN CORPUSCULAR HEMOGLOBIN 31.8 pg (28-32); MEAN CORPUSCULAR HGB CONC 32.5 g/dL (31-35); MONOCYTES # (AUTO) 0.8 (0.2-0.8); MONOCYTES % 9.8 % (4.4-11.3); NEUTROPHILS # (AUTO) 4.4 (2.1-6.9); NEUTROPHILS % 54.3 % (38.7-80.0); PLATELET COUNT 150 x10e3/uL (140-360); RED BLOOD COUNT 3.99 x10e6/uL (3.6-5.1); RED CELL DISTRIBUTION WIDTH 14.7 % (11.7-14.4)
[2018-10-23 04:33] LABS: ANION GAP 12.6 mmol/L (8-16); CALCIUM 8.8 mg/dL (8.4-10.2); CREATININE, SERUM 1.36 mg/dL (0.57-1.11); MAGNESIUM 1.6 MG/DL (1.3-2.1); POTASSIUM 3.6 mmol/L (3.5-5.1)
[2018-10-23] MEDS ORDERED: FUROSEMIDE INJ 10 MG/ML 2 ML VIAL IV ONE (05:15)
[2018-10-23] MEDS: METRONIDAZOLE 500MG/NS 100ML 100 ML IV SCH ×2 (06:07→14:58)
[2018-10-23] MEDS: TORSEMIDE 10 MG TAB PO SCH ×2 (06:07→12:22)
[2018-10-23] MEDS: METOPROLOL TARTRATE 25 MG TAB PO SCH ×2 (06:07→14:59)
[2018-10-23] MEDS: LEVOTHYROXINE SODIUM 100 MCG TAB PO SCH (06:08)
--- NOTE | 2018-10-23 06:49 | NUR ---
Patient's IV became disloged while changing diaper. IV w/ cath tip removed and pressure applied.
--- NOTE | 2018-10-23 07:00 | NUR ---
BEDSIDE SHIFT REPORT RECEIVED FROM ENVIRONMENTAL SERVICES WORKER RN. PT DENIES NEEDS AT THIS TIME.
[2018-10-23] MEDS: INSULIN LISPRO 100 UNIT/1 ML 3ML VIAL SQ SCH ×3 (07:30→16:30)
[2018-10-23] MEDS: GLIPIZIDE 5 MG TAB PO SCH (08:23)
[2018-10-23] MEDS: FAMOTIDINE 20 MG TAB PO SCH ×2 (08:23→17:00)
[2018-10-23] MEDS: DOCUSATE SODIUM 100 MG CAP PO SCH ×2 (08:24→17:36)
[2018-10-23] MEDS: GUAIFENESIN 600 MG TAB PO SCH ×2 (08:24→17:36)
[2018-10-23] MEDS: LISINOPRIL 10 MG TAB PO SCH (08:25)
[2018-10-23] MEDS: POLYETHYLENE GLYCOL 3350 17 GM PACK PO SCH ×2 (08:38→17:00)
[2018-10-23] MEDS: CEFEPIME 1GM/NS 0.9% 50 ML 50 ML IV SCH (12:22)
--- NOTE | 2018-10-23 17:10 | NUR ---
DR WOODY AT BEDSIDE. OKAY TO DISCHARGE PT PER DR. WOODY.
[2018-10-23 17:41] LABS: INR 2.57; PROTHROMBIN TIME 28.3 seconds (11.9-14.5)
--- NOTE | 2018-10-23 17:42 | NUR ---
OKAY TO DISCHARGE PER NHUNG YORK NP
[2018-10-23] MEDS: WARFARIN SOD 2 MG TAB PO SCH (17:58)
[2018-10-23] MEDS ORDERED: FLAGYL500 MG (18:09)
[2018-10-23] MEDS ORDERED: CEFUROXIME250 MG PO (18:11)
--- NOTE | 2018-10-23 18:53 | NUR ---
IV REMOVED. TIP INTACT. BLEEDING STOPPED AND DRESSING APPLIED. PT DENIED FURTHER NEEDS.
--- NOTE | 2018-10-23 19:17 | NUR ---
PT DISCHARGED AND TRANSPORTED HOME BY EMS WITH DAUGHTER ATTENDING. PT DENIES FURTHER NEEDS. [facility] NOTIFIED BY THIS NURSE THAT PT IS GOING HOME AND TO [facility] HOME [facility]ALTH CARE.
--- NOTE | 2018-10-25 11:01 | Discharge Summary ---
ADMISSION DIAGNOSES: Right lower quadrant community-acquired pneumonia present on admission with severe sepsis, acute urinary tract infection with sepsis present on admission, acute on chronic atrial fibrillation, chronic obstructive pulmonary disease without exacerbation, chronic diastolic congestive heart failure, hypertension complicated by diastolic congestive heart failure and chronic kidney disease 3, acute kidney injury on chronic kidney disease 3, type 2 diabetes complicated by chronic kidney disease 3, morbid obesity, hypothyroidism. DISCHARGE DIAGNOSES: Right lower quadrant community-acquired pneumonia present on admission with severe sepsis, acute urinary tract infection with sepsis present on admission, acute on chronic atrial fibrillation, chronic obstructive pulmonary disease without exacerbation, chronic diastolic congestive heart failure, hypertension complicated by diastolic congestive heart failure and chronic kidney disease 3, acute kidney injury on chronic kidney disease 3, type 2 diabetes complicated by chronic kidney disease 3, morbid obesity, hypothyroidism, Pseudomonas aeruginosa of the right lower extremity present on admission, Escherichia coli urinary tract infection, and Staph coag-negative bacteremia present on admission. HISTORY: The patient has a history of hypertension, type 2 diabetes, chronic diastolic CHF, atrial fibrillation, gallstones, kidney failure, umbilical hernia, COPD, cellulitis of the right foot, CKD 3, morbid obesity, obstructive sleep apnea, and hypothyroidism. SURGICAL HISTORY: Bilateral foot surgery, bilateral shoulder surgery. FAMILY HISTORY: Noncontributory. SOCIAL HISTORY: The patient admits to smoking about half a pack of cigarettes a day for 10 years. HOSPITAL COURSE: An 87-year-old female began feeling ill with fever and chills and she had a strong smelling urine per family and ct manager. The patient has a history of arthritis and admits to right shoulder pain. She is unable to remember when it started. On admission, chest x-ray showed cardiomegaly and pulmonary vascular congestion. Right basilar airspace opacity may represent atelectasis or infiltrate. KUB showed unremarkable bowel gas pattern. Moderate burden of stool in the right colon, possible fecal impaction. The patient was given stool softeners and laxatives and had a bowel movement. Due to the pneumonia on admission, the patient had an MBS that showed laryngeal penetration with thin nectar and juice portion of mixed texture, saline aspiration with thin and nectar thick liquids as well as juice portion of mixed texture. CT of the abdomen showed findings suggestive of enteritis, cholelithiasis without cholecystitis. The patient has right lower extremity wound was positive for Pseudomonas aeruginosa. Urine was positive for E coli and blood cultures were positive for Pseudomonas aeruginosa plus Staph. Per ID, the patient was started on cefepime and Flagyl. At time of discharge, the patient was discharged with Ceftin for 10 days and Flagyl for 10 days p.o. per ID recommendation. Cellulitis of the right foot and ankle is improving. The patient is feeling much better. She will also get a prescription for Tylenol 3, Colace b.i.d., Mucinex p.r.n. The patient and ct manager understand discharge instructions and agrees to plan. Vital signs stable. The patient is afebrile. Due to her chronic diastolic CHF, the patient is chronically hypoxic. Upon assessment, her oxygen dropped to 78% with exertion on room air. She will be discharged home with 3 L/minute continuous nasal cannula. Dictated by Nabila Elder NP MD MARY Garcia/RAS /[id number]
== END 2018-10-23 19:07 | disposition home health service (06) | DRG 871 ==
LOC: ER 20:25 → ERHOLD 22:29 → MED/SURG2 23:08
PROVIDERS: ADMIT Internal Medicine; ATTEND Internal Medicine
DX: A41.52 Sepsis due to Pseudomonas (principal); J18.9 Pneumonia, unspecified organism; N39.0 Urinary tract infection, site not specified; I13.0 Hypertensive heart and chronic kidney disease with heart failure and stage 1 through stage 4 chronic kidney disease, or unspecified chronic kidney disease; I50.32 Chronic diastolic (congestive) heart failure; Z68.41 Body mass index [BMI] 40.0-44.9, adult; J44.0 Chronic obstructive pulmonary disease with (acute) lower respiratory infection; J44.1 Chronic obstructive pulmonary disease with (acute) exacerbation; L03.115 Cellulitis of right lower limb; K80.12 Calculus of gallbladder with acute and chronic cholecystitis without obstruction; R65.20 Severe sepsis without septic shock; I48.2 Chronic atrial fibrillation; Z79.01 Long term (current) use of anticoagulants; J44.9 Chronic obstructive pulmonary disease, unspecified; N18.3 Chronic kidney disease, stage 3 (moderate); E11.22 Type 2 diabetes mellitus with diabetic chronic kidney disease; Z79.4 Long term (current) use of insulin; E66.01 Morbid (severe) obesity due to excess calories; B96.20 Unspecified Escherichia coli [E. coli] as the cause of diseases classified elsewhere; Z16.12 Extended spectrum beta lactamase (ESBL) resistance; E87.6 Hypokalemia; E83.42 Hypomagnesemia; K52.9 Noninfective gastroenteritis and colitis, unspecified
CPT/HCPCS: 36415; 71045; 71046; 74018; 74176; 74230; 80048; 80053; 80061; 81001; 82140; 82550; 82553; 82948; 83036; 83605; 83735; 83880; 84100; 84443; 84484; 85025; 85610; 85730; 87040; 87071; 87086; 87186; 87205; 87400; 93005; 94640; 96372; 97139; 99284; J0456; J0692; J0696; J1815; J1940; J3370; J3475; J7030; J7050